=== PATIENT | female | born 1960 | race African-American/Black ===

== ENCOUNTER 2016-07-11 13:07 | Emergency (ER) | payer MEDICARE, OTHER ==
[2016-07-11 11:01] LABS: BASOPHILS 0.2 %; BASOPHILS ABSOLUTE 0.01 10/3/uL (0.0-0.16); EOSINOPHILS 0.8 %; EOSINOPHILS ABSOLUTE 0.04 10/3/uL (0.0-0.53); ER CBC TAT 0 Hrs 05 Mins; HEMATOCRIT 42.1 % (36.0-48.0); HEMOGLOBIN 13.8 g/dL (12.0-16.0); IMMATURE GRANULOCYTES 0.2 %; IMMATURE GRANULOCYTES ABSOLUTE 0.01 10/3/uL (0.0-0.11); LYMPHOCYTES 24.4 %; MANUAL DIFF NO %; MEAN CORPUS HGB CONC 32.8 g/dL (32.0-36.0); MEAN CORPUSCULAR HEMOGLOB 28.2 pg (26.0-34.0); MEAN CORPUSCULAR VOLUME 86.1 fL (80-100); MEAN PLATELET VOLUME 12.2 fL (9.2-13.0); MONOCYTES 8.4 %; MONOCYTES ABSOLUTE 0.45 10/3/uL (0.21-1.20); NEUTROPHILS ABSOLUTE 3.52 10/3/uL (2.02-8.40); PLATELET COUNT 168 10/3/uL (150-400); RBC DISTRIBUTION WIDTH 14.1 % (12.0-16.0); RED CELL COUNT 4.89 10/6/uL (4.0-5.6); WHITE BLOOD CELLS 5.3 10/3/uL (4.5-10.5)
[2016-07-11 11:08] LABS: INTERNATIONAL NORMAL RATI 1.1 UNITS (-); PARTIAL THROMBO TIME 25.3 SEC (22.5-37.2); PROTIME (NOT ORD) 14.1 SEC (12.0-14.5)
[2016-07-11 11:19] LABS: ALKALINE PHOSPHATASE 92 U/L (45-117); BUN (BLOOD UREA NITROGEN) 5 MG/DL (6-23); CALCIUM, SERUM 9.2 MG/DL (8.5-10.4); CHEST PAIN PROFILE TAT 0 Hrs 23 Mins; CHLORIDE, SERUM 108 MMOL/L (96-112); CO2 (CARBON DIOXIDE) 28 MMOL/L (24-34); CREATININE 0.77 MG/DL (0.55-1.02); GFR AFRICAN AMERICAN 101 ML/MIN (>=60); GFR NON AFRICAN AMERICAN 88 ML/MIN (>=60); GLUCOSE, SERUM 105 MG/DL (60-99); POTASSIUM, SERUM 3.2 MMOL/L (3.5-5.3); SGOT(AST) 14 U/L (5-40); SGPT(ALT) 17 U/L (5-65); SODIUM, SERUM 146 MMOL/L (135-148); TOTAL BILIRUBIN 0.5 MG/DL (0-1.2); TOTAL PROTEIN 7.8 G/DL (6.0-8.5); TROPONIN I <0.02 NG/ML (<0.05)
[2016-07-11 11:20] LABS: DIRECT BILIRUBIN < 0.1 MG/DL (0.0-0.4); INDIRECT BILIRUBIN(NOT ORDER) 0.4 MG/DL (0.1-0.9)
[2016-07-11 11:31] LABS: LACTATE 1.1 MMOL/L (0.3-2.4)
[2016-07-11 12:51] LABS: ASCORBIC ACID (UR NOT ORDER) NEG (NEG); BILIRUBIN, URINE NEGATIVE (NEG); ER URINALYSIS TAT 0 Hrs 08 Mins; KETONE, URINE TRACE MG/DL (NEG); LEUKOCYTE ESTERASE(NOT OR NEG (NEG); NITRITE (URINE) NEG (NEG); WBC (NOT ORDERED) (RFLEX) 1 (0-5)
[~2016-07-11 13:07] MED LIST: ATEN25 PO; CIP5 PO; CYMBALTA60 PO; DURA25 TOP; FIORICET 50-301 EACH PO; FLOMAX4 PO; FLORASTOR250 MG; GOODY'S EX-STR1 EAC1 PO; IMODIUM AD PO; LYRICA150 MG PO; MARI5; NEUR300 PO; NORCO1 TA2 PO; NORCO1 TAB PO; NYQUIL LIQUID PO; OXYCOD PO; PERCOCET1 TA4 PO; PR25 PO; PROLOP100 PO; QUESTRAN4 GM; REM15 PO; ROXICODONE15 MG PO; ZYDONE1 TA2 PO
[2016-12-13] MEDS ORDERED: PR25 PO (10:51)
[2016-12-13] MEDS ORDERED: OXYCON10 PO (10:51)
== END 2016-07-11 15:34 | disposition home or self-care (01) ==
LOC: ER 13:07
PROVIDERS: Emergency Medicine
DX: K76.89 Other specified diseases of liver (principal); Z85.71 Personal history of Hodgkin lymphoma; Z88.5 Allergy status to narcotic agent; Z88.8 Allergy status to other drugs, medicaments and biological substances; Z79.82 Long term (current) use of aspirin; Z79.899 Other long term (current) drug therapy
CPT/HCPCS: 71010; 74176; 80048; 80076; 81001; 83605; 83690; 83735; 83880; 84484; 85025; 85610; 85730; 93005; 96374; 99285; A9270-GY; J2405